=== PATIENT | female | born 1955 | race Caucasian/White ===

== ENCOUNTER 2016-05-19 14:57 | Emergency (ER) | payer MEDICARE, OTHER ==
[~2016-05-19] VITALS: Ht 149.9 cm; Wt 80.7 kg
[2016-05-19] MEDS ORDERED: fentaNYL 100 mcg/2 mL IV ONE ×2 (15:30→16:30)
[2016-05-19] MEDS ORDERED: Ketorolac 30mg Inj IV ONE (15:30)
--- NOTE | 2016-05-19 15:38 | Emergency Room Report ---
History of Present Illness General Chief Complaint: Multiple Trauma/Fall Source: Patient Present Illness HPI The patient fell getting off a bus one hour prior to presentation. She hit her right side mainly her elbow. She was able to walk home. She complains about severe right elbow pain 8/10 sharp and aching. She she feels also some numbness on her right thigh area. She did not lose consciousness. Denies any chest pain or palpitations. There is no nausea vomiting or diarrhea. She is able to move her right arm with difficulty. The pain radiates up towards the shoulder but does not involve the shoulder. The wrist is nontender. Pain is 910. Unknown tetanus. Scraped knee. No dyspnea, dysuria. Anxious. R handed. Allergies: Coded Allergies: No Known Allergies (Unverified , 05/19/16) Patient History Past Medical History: see triage record Social History: Denies: alcohol use, smoking Social History Narrative brought by neighbor Reviewed Nursing Documentation: PMH: Agreed, PSxH: Agreed Nursing Documentation-PM Past Medical History: No History, Except For Hx Hypertension: Yes Review of Systems All Other Systems: negative except mentioned in HPI Physical Exam Vital Signs Date Time Temp Pulse Resp B/P Pulse Ox O2 Delivery O2 Flow Rate FiO2 05/19/16 15:02 97.5 124 20 128/75 94 Room Air Sp02 EP Interpretation: reviewed, abnormal - low for what would be expected as interpreted by me General Appearance: well appearing, no apparent distress, GCS 15 Head: normocephalic Eyes: bilateral eye PERRL, bilateral eye normal inspection ENT: moist mucus membranes - poor dentition Neck: full range of motion, supple, no bony tend Respiratory: chest non-tender, lungs clear, normal breath sounds Cardiovascular #1: regular rate, rhythm Cardiovascular #2: 2+ radial (R) Gastrointestinal: normal inspection, normal bowel sounds, non tender, no mass, non-distended Musculoskeletal: back normal, gait/station normal, normal range of motion - except for R upper arm. Humerus swelling with some deformity. Elbow slight tender. Wrist and shoulder without tenderness or swelling., other - knee ligaments stable, ambulates without difficulty Neurologic: alert, oriented x3, motor strength/tone normal, DTRs symmetric, sensory intact, sensory deficit - R thigh, other - radial nerve tested and intact R arm/hand Skin: warm/dry, abrasions - R knee, hematoma - bilateral knees Medical Decision Making Diagnostic Impression: Primary Impression: Fall Qualified Codes: W19.XXXA - Unspecified fall, initial encounter Additional Impressions: Humerus shaft fracture Qualified Codes: S42.341A - Displaced spiral fracture of shaft of humerus, right arm, initial encounter for closed fracture Knee contusion Qualified Codes: S80.00XA - Contusion of unspecified knee, initial encounter ER Course The patient presents after falling. She has right arm pain and numbness of her right thigh. Differential includes fracture, contusion ends sprain. Although she has mild deformity -- dislocation is also possible. The patient was evaluated with x-rays. In addition to that she'll be treated with analgesia ( Zofran, fentanyl and Toradol]. Humerus fracture. Discussed with Dr. Zurita who states OK for outpatient treatment. Knees, back, wrist, elbow without fx. DJD present. Splint applied by tech under my direction. Position excellent and neurovasc normal as checked by me. Pain controlled in ED. Offered patient admission to hospital. She and neighbor elected for outpatient observation and treatment. Will return if not doing well. Other X-Ray Diagnostic Results Other X-Ray Diagnostic Results #1: X-Ray Ordered: shoulder EP Interpretation: Yes Findings: no dislocation, no soft tissue swelling, other - fx, angulation Number of Views: 3 Other X-Ray Diagnostic Results #2: X-Ray Ordered: wrist EP Interpretation: Yes Findings: no fractures, no dislocation, no soft tissue swelling Number of Views: 3 Other X-Ray Diagnostic Results #3: X-Ray Ordered: elbow EP Interpretation: Yes Findings: no fractures, no dislocation, no soft tissue swelling Number of Views: 3 Other X-Ray Diagnostic Results #4: X-Ray Ordered: ls spine EP Interpretation: Yes Findings: no fractures, other - fibroid, spondylosysthesis and DJD Number of Views: 3 Other X-Ray Diagnostic Results #5: X-Ray Ordered: pelvis Findings: no fractures, no dislocation, other - DJD and fibroid Number of Views: 1 Last Vital Signs Date Time Temp Pulse Resp B/P Pulse Ox O2 Delivery O2 Flow Rate FiO2 05/19/16 17:56 98.0 87 18 132/76 98 Room Air Status: improved Disposition: HOME, SELF-CARE Condition: Improved Scripts Tramadol Hcl* (ULTRAM*) 50 Mg Tablet 50 MG ORAL Q6H Y for For Pain, #14 TAB 0 Refills Prov: Jorge Fisher M.D. 05/19/16 Ibuprofen* (MOTRIN*) 600 Mg Tablet 600 MG ORAL Q6HR Y for For Pain, #20 TAB 0 Refills Prov: Jorge Fisher M.D. 05/19/16 Jorge Fisher M.D. May 19, 2016 15:38
[2016-05-19 15:39] VITALS: BP 132/76
[2016-05-19] MEDS ORDERED: Bacitracin Oint UD TOPIC ONE (16:30)
[2016-05-19] MEDS ORDERED: TdaP Vaccine 0.5ml Syr IM ONE (16:30)
[2016-05-19] MEDS ORDERED: TRAMADOL HCL50 MG ORAL (17:12)
[2016-05-19] MEDS ORDERED: IBUPROFEN600 MG ORAL (17:12)
[2016-05-19 17:55] VITALS: BP 129/73
[2016-05-19 17:56] VITALS: BP 132/76
--- NOTE | 2016-05-20 09:02 | Diagnostic Imaging Report ---
Indication: Pain status post fall. Technique: Single frontal view of the pelvis is provided. Comparison: None. Findings: No acute fracture is seen in the pelvis or visualized femurs. The pubic symphysis is within normal limits. The SI joints appear patent. Degenerative disease is noted in the visualized lower lumbar spine. Dystrophic calcification in the left hemipelvis may represent a calcified fibroid. Impression: No evidence of acute fracture or dislocation.
--- NOTE | 2016-05-20 09:05 | Diagnostic Imaging Report ---
History: Pain status post fall. Technique: 3 views of the lumbar spine are provided. Comparison: None. Findings: There is 5 mm anterolisthesis of L4 on L5, possibly degenerative in etiology. Sagittal alignment appears preserved at the remaining levels. Moderate facet arthropathy is noted, particularly involving L3-L4 through L5-S1 levels. There is no definite radiographic evidence of acute fracture from L1 to S1. The disc spaces and vertebral body heights are preserved. Probable calcified fibroid is noted in the pelvis. Impression: 1. No definite radiographic evidence of acute fracture or dislocation. 2. Mild anterolisthesis of L4 on L5, likely degenerative. 3. Moderate facet arthropathy noted in the lower lumbar spine.
--- NOTE | 2016-05-20 09:09 | Diagnostic Imaging Report ---
History: Pain status post fall. Technique: Frontal, lateral, and transscapular Y. Views of the right shoulder are provided. Comparison: No prior study is available for comparison. Findings: Acute oblique fracture of the proximal-mid humeral shaft is identified with associated foreshortening and angulation. There is a subtle fracture involving the greater tuberosity at the supraspinatus tendon insertion. The glenohumeral and acromioclavicular joints appear grossly intact. Impression: 1. Acute fracture of the proximal-mid humeral shaft with associated foreshortening and angulation. 2. Nondisplaced fracture involving the greater tuberosity at the supraspinatus insertion
--- NOTE | 2016-05-20 11:59 | Diagnostic Imaging Report ---
History: Pain status post fall. Technique: Frontal, lateral, and oblique views of the right elbow are provided. Comparison: No prior study is available for comparison. Findings: Proximal humeral fracture is not completely imaged. Overall bony mineralization is within normal limits. There is no evidence of acute elbow fracture or dislocation. No significant erosive or arthritic change is noted. The soft tissues appear grossly normal. No significant joint effusion is noted. Impression: No evidence of acute right elbow fracture or dislocation. Proximal humeral fracture is not fully imaged.
--- NOTE | 2016-05-21 08:36 | Diagnostic Imaging Report ---
History: Pain status post fall. Technique: Frontal, lateral, and oblique views of the right wrist are provided. Comparison: No prior study is available for comparison. Findings: Overall bony mineralization is within normal limits. There is no evidence of acute fracture or dislocation. No significant erosive or arthritic change is noted. The soft tissues appear grossly normal. No significant joint effusion is noted. Impression: No evidence of acute fracture or dislocation.
== END 2016-05-19 17:58 | disposition home or self-care (01) ==
LOC: EMR 15:39 → CANBEDREQ 16:33 → EMR 17:58
DX: S42.341A Displaced spiral fracture of shaft of humerus, right arm, initial encounter for closed fracture (principal); S80.00XA Contusion of unspecified knee, initial encounter; W17.89XA Other fall from one level to another, initial encounter; Y93.9 Activity, unspecified; Y92.9 Unspecified place or not applicable; I10 Essential (primary) hypertension; M47.896 Other spondylosis, lumbar region; M16.10 Unilateral primary osteoarthritis, unspecified hip; D21.5 Benign neoplasm of connective and other soft tissue of pelvis; Z23 Encounter for immunization
CPT/HCPCS: 29105; 29240; 72020; 72170; 73030; 73080; 73110; 90471; 90715; 96374; 96375; 99284; J1885; J2405; J3010